=== PATIENT | female | born 1995 | race Caucasian/White ===

== ENCOUNTER 2020-04-17 18:16 | Emergency (ER) | payer SELFPAY ==
--- NOTE | 2020-04-17 18:57 | PC.NURSE ---
valuables envelope with mastercard & money placed into the safe.
[2020-04-17 19:38] LABS: Basophils Absolute Auto 0.1 K/mm3 (0.0-0.1); Basophils Percent Auto 0.7 % (0.2-1.2); Eosinophils Absolute Auto 0.8 K/mm3 (0-0.3); Eosinophils Percent Auto 10.2 % (0-4.4); Hematocrit 34.1 % (37.0-47.0); Hemoglobin 10.7 g/dL (12.0-15.0); Immature Granulocyte Absolute 0.03 K/mm3 (0.00-0.031); Immature Granulocyte Percent A 0.4 % (0-0.5); Lymphocytes Absolute Auto 1.78 K/mm3 (0.9-3.2); Lymphocytes Percent Auto 23.2 % (18.3-44.2); Mean Corpuscular HGB Conc 31.4 g/dl (32-36); Mean Corpuscular Hemoglobin 24.2 pg (26-34); Mean Platelet Volume 10.1 fl (7.4-10.4); Monocytes Absolute Auto 0.5 K/mm3 (0.1-0.6); Monocytes Percent Auto 6.3 % (2.6-8.5); Neutrophils Absolute Auto 4.6 K/mm3 (1.3-6.7); Neutrophils Percent Auto 59.2 % (45.5-73.1); Platelet Count Result 215 k/mm3 (150-375); Red Blood Count 4.43 M/mm3 (4.2-5.4); Red Cell Distribution Width 16.3 % (11.5-14.5); White Blood Count 7.7 K/mm3 (4.5-10.0)
[2020-04-17 19:45] LABS: Add Urine Microscopic? YES; Appearance Urine Clear (Clear); Bilirubin Urine Negative (Negative); Blood Urine Negative (Negative); Color Urine Yellow (Yellow); Glucose Urine UA Negative (Negative); Ketones Urine Negative (Negative); Leukocyte Esterase Ur 1+ LEU/UL (Negative); Mucus Urine Rare /lpf; Nitrate Urine Negative (Negative); Protein Urine Negative (Negative); RBC Urine 0-2 /hpf (0-2); Specific Grav Ur 1.029 (1.001-1.035); Squamous Epithelial Cell Urine Many /hpf (Few); Urobilinogen Urine Negative mg/dL (<2.0)
[2020-04-17 19:53] LABS: Alanine Aminotransferase 21 U/L (4-35); Albumin Level 4.5 g/dL (3.5-5.1); Alkaline Phosphatase 100 U/L (38-126); Aspartate Amino Transferase 39 U/L (14-36); Bilirubin,Total 0.2 mg/dL (0.2-1.3); Blood Urea Nitrogen 21 mg/dL (7-17); Calcium 8.4 mg/dL (8.4-10.2); Carbon Dioxide 23 mmol/L (22-30); Chloride 106 mmol/L (98-107); Estimated Glomerular Filt Rate > 60; Ethanol < 10 mg/dL (<10); Glucose 78 mg/dL (65-105); Potassium 3.9 mmol/L (3.4-5.0); Sodium 139 mmol/L (137-145)
[2020-04-17 19:55] LABS: Amphetamine Screen Urine Negative (Negative); Barbiturate Screen Urine Negative (Negative); Benzodiazepines Screen Urine Negative (Negative); Cannabinoid Screen Urine Negative (Negative); Cocaine Screen Urine Negative (Negative); Methadone Screen Urine Negative (Negative); Opiate Screen Urine Negative (Negative); Phencyclidine Screen Urine Negative (Negative)
--- NOTE | 2020-04-17 19:58 | ED.PSYCH ---
HPI - Psych General Chief Complaint: Psychiatric Symptoms Stated Complaint: SI Time Seen by Provider: 04/17/20 19:05 History of Present Illness HPI Narrative: Patient is a 24-year-old female who presents ER with suicidal ideation. Reports she is going step in front of a train or tie her jacket around her neck and hang herself. Patient reports she was seen at [facility] but did not elaborate. It appears actually patient was seen 04/16/2020 at [facility], prior to that she had been evaluated at [facility], and prior to that she been hospitalized at [facility] from 04/04-04/13. Patient evasive when asked about these visits. A note from [facility] shows that she has borderline personality disorder as well as significant history of malingering at [facility]. Patient had told [facility] versus ER psychiatry that she was planning going to [facility] because had all female beds instead of beds that were mixed gender. Denies harm towards others. Related Data Home Medications Medication Instructions Recorded Confirmed paliperidone [Invega] 6 mg PO DAILY 04/17/20 prazosin [Minipress] 1 mg PO DAILY 04/17/20 trazodone 50 mg PO HS 04/17/20 Allergies Allergy/AdvReac Type Severity Reaction Status Date / Time aripiprazole Allergy Unknown Other Verified 04/17/20 20:09 Pork Allergy Unknown Other Uncoded 04/17/20 20:09 Review of Systems Review of Systems: All systems reviewed & are unremarkable except as noted in HPI and below Constitutional: Constitutional: Denies chills, Denies fever(s) and Denies weakness ENT: Denies nasal congestion and Denies sore throat Cardiovascular: Cardiovascular: Denies chest pain and Denies rapid heart rate Respiratory: Respiratory: Denies cough and Denies dyspnea Gastrointestinal: Gastrointestinal: Denies abdominal pain, Reports nausea and Reports vomiting Integumentary/Breasts: Comments: Bite wound to the lower extremity that is well-healing and several days old. Psychiatric: Psychiatric: Reports depression, Denies homicidal ideation and Reports suicidal ideation [facility] Past Medical History Medical History (Updated 04/18/20 @ 00:00 by Background Daemon) Asthma Bipolar 1 disorder Borderline personality disorder Depressive disorder GERD (gastroesophageal reflux disease) Schizophrenia Scoliosis Surgical History Surgical History (Updated 04/17/20 @ 20:09 by Alfa Concepcion MD) History of section Social History Social History (Updated 04/17/20 @ 20:09 by Alfa Concepcion MD) Other substance usage details: Fentanyl abuse Gender identity (if verbalized by the patient): Female Exam Narrative: Exam Narrative: GENERAL: Well-appearing, well-nourished, and in no acute distress. HEAD: Normocephalic, atraumatic. ENT: Mucous membranes moist. CHEST: Clear to auscultation. No respiratory distress. HEART: Regular rate and rhythm. Normal peripheral pulses. EXTREMITIES: Normal range of motion. No edema. NEURO: Alert and oriented x3. PSYCH: Normal mood and affect. Not responding to internal stimuli. Reports SI. Course Course Emergency Course: Patient has been seen by the crisis family lawyer. Patient is not responding to internal stimuli. She is talked to the crisis family lawyer about wanting to be in a half-way that she has not been suicidal for couple of days. Patient has no history of previous attempts. The plan is to discharge the patient with resources. Patient is homeless and will given resources for that as well. Vital Signs Vital signs: Vital Signs Temperature 98.4 F 04/17/20 20:05 Pulse Rate 83 04/17/20 20:05 Respiratory Rate 18 04/17/20 20:05 Blood Pressure 127/107 H 04/17/20 20:05 Pulse Oximetry 93 04/17/20 20:05 Temperature 98.4 F 04/17/20 20:05 Pulse Rate 85 04/17/20 23:27 Respiratory Rate 18 04/17/20 23:27 Blood Pressure 124/81 04/17/20 23:27 Pulse Oximetry 100 04/17/20 23:27 [facility] - Psych Lab
[2020-04-17 20:05] VITALS: BP 127/107; PULSE 83; RESP 18; TEMP 36.9; O2SAT 93
[2020-04-17 20:47] LABS: Pregnancy On Board Control Positive; Urine Pregnancy Test Negative
[2020-04-17 20:48] LABS: Specific Gravity Ur 1.028 (1.010-1.035)
[2020-04-17] MEDS: ONDANSETRON HCL ODT 4 MG TABLET PO (22:08)
--- NOTE | 2020-04-17 22:33 | PC.NURSE ---
2320 Nancy here to evaluate pt
--- NOTE | 2020-04-17 23:04 | PC.NURSE ---
ASSUMED CARE AT THIS TIME FROM MELIDA KIRK. CRISIS AT BEDSIDE AT THIS TIME WITH SITTER, AT THIS TIME CRISIS STATES THAT SHE WILL ATTEMPT TO FIND PT A PLACE TO GO AND SEND HER HOME ON A SAFETY CONTRACT. PT STANDING IN DOORWAY, CALM, AWAITING CRISIS TO FINISH HER ASSESSMENT. ALL BELONGINGS REMOVED, SITTER WITH PT IN DIRECT SITE, SEE PT PSYCH ASSESSMENT, IN NO APPARENT DISTRESS.
--- NOTE | 2020-04-17 23:07 | PC.NURSE ---
PER CRISIS PT WILL NOT BE ADMITTED AND IS REFUSING TO SIGN A SAFETY CONTRACT, STATES THAT SHE WILL BE GOING TO THE [employer] [place] TO CALL THE POLICE AND GO TO A DIFFERENT FACILITY FOR ASSESSMENT, EDP SUE AND VOCATIONAL REHABILITATION COUNSELOR JACQUI AWARE OF PT STATEMENTS.
[2020-04-17 23:08] VITALS: BP 124/91; PULSE 81; RESP 18; O2SAT 100
[2020-04-17 23:27] VITALS: BP 124/81; PULSE 85; RESP 18; O2SAT 100
== END 2020-04-17 23:29 | disposition home or self-care (01) ==
PROVIDERS: Emergency Medicine; Emergency Provider Emergency Medicine
DX: F31.9 Bipolar disorder, unspecified (principal); J45.909 Unspecified asthma, uncomplicated; K21.9 Gastro-esophageal reflux disease without esophagitis; F60.3 Borderline personality disorder; F20.9 Schizophrenia, unspecified
CPT/HCPCS: 36415; 80053; 80307; 81001; 81025; 84443; 85025; 87086; 99284; A9270